=== PATIENT | female | born 1965 | race Caucasian/White ===

== ENCOUNTER → 2018-02-28 07:09 | Outpatient (CLI) | payer BC ==
[2014-05-13 17:30] VITALS: BMI 33.1
[~2018-02-28 07:09] MED LIST: BUTALB-APAP-CA1 EACH PO; CELEXA40 MG PO; HYDROCODONE-APA1 TAB PO; PRILOSEC20 MG PO
== END | disposition home or self-care (01) ==
LOC: D.MRI 07:09
DX: M54.2 Cervicalgia (principal)

== ENCOUNTER → 2018-10-24 13:13 | Outpatient (CLI) | payer BC | END | disposition home or self-care (01) | LOC: D.LABREF 13:13 | DX: R31.9 Hematuria, unspecified (principal) ==

== ENCOUNTER 2018-11-20 07:08 | Day surgery (SDC) | payer BC ==
[~2018-11-20] VITALS: Ht 152.4 cm; Wt 70.3 kg
[~2018-11-20 07:08] MED LIST changes: +BUPROPION HCL150 M1 PO
[2018-11-20 07:09] LABS: HEMATOCRIT 40.4 % (36.0-48.0); MCH 31.3 pg (26.0-34.0); MCHC 34.7 g/dL (31.0-37.0); MCV 90.4 fL (80.0-100.0); MEAN PLATELET VOLUME 9.1 fL (7.4-10.4); RBC 4.47 10x6/uL (4.00-5.40); RDW 13.3 % (11.5-14.5); WBC 4.1 10x3/uL (4.8-10.8)
[2018-11-20] MEDS ORDERED: WELLBUTRIN PO (08:22)
[2018-11-20 08:23] VITALS: BP 114/68; Ht 152.4 cm; Wt 70.3 kg
--- NOTE | 2018-11-20 10:49 | NUR ---
DC INSTRUCTIONS GIVEN TO PT/FAMILY. STATE UNDERSTANDING. DC'D IV CATH FULLY INTACT. PT VOIDED.
--- NOTE | 2018-11-20 10:59 | NUR ---
PT LEFT UNIT VIA WC AT 1058
--- NOTE | 2018-11-21 08:37 | OP ---
PATIENT NAME: YUKO SOLORZANO MEDICAL RECORD: [id number] :69 LOCATION:D.OPS ADMISSION DATE: SURGEON: RAMIN GALARZA MD DATE OF OPERATION: 11/20/2018 SURGEON: Ramin Galarza MD ANESTHESIA: TIVA by Russel Bautista CRNA PROCEDURES: Cystoscopy, bilateral retrograde pyelograms, hydrodistention and intravesical Rimso installation. DIAGNOSES: Microscopic hematuria, interstitial cystitis. FINDINGS: On cystoscopy, no bladder tumors, but diffusely inflamed bladder was noted. Single ureteral orifices are present bilaterally. 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 No filling defects are seen. BLOOD LOSS: None. CLINICAL HISTORY: This is a 53-year-old female, who was referred for microscopic hematuria. Urine cultures have shown no growth. She had a CT scan of the abdomen and pelvis, which showed "fullness" of the right ureter. No stones were seen. The kidneys were otherwise normal appearing. She has no significant voiding symptoms except for stress urinary incontinence, which was also present on physical examination. She also has some right lower quadrant abdominal pain, which radiates to the back. SHE IS ALLERGIC TO BACTRIM. She was given Ancef today oracle iam consultant to the OR. She comes today to have cystoscopy and bilateral retrograde pyelograms to define the ureteral anatomy. DESCRIPTION OF PROCEDURE: The patient was given IV sedation. She was placed in the lithotomy position and prepped and draped. A 21-Turkmen cystoscope with 30-degree lens was used for visualization. She had single ureteral orifices visible on each side. The bladder was extremely inflamed. I proceeded with hydrodistention. While we were performing the hydrodistention, I performed a right retrograde pyelogram. This shows that at the mid ureteral level, the ureter splits into two so there was a partial duplication. Following each of these ureteral units up to the upper and lower poles of the kidney, there were no apparent filling defects. The ureter that they had in common also showed no filling defects. A left retrograde pyelogram was then performed and this showed that the ureteral division occurs virtually at the entrance of the bladder. 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 Again, no filling defects or hydronephrosis were seen. The bladder was then emptied through the cystoscope sheath and the scope was removed. We instilled 50 mL of intravesical Rimso into the bladder through a red rubber catheter. The solution will be kept in the bladder for 15 minutes and then void it out. I will see her in followup in 2 weeks' time to review her symptoms at that time. She does want to have the stress urinary incontinence dealt with in the near future. TRANSINT:[id number] Voice Confirmation ID: [id number] DOCUMENT ID: [id number] OPERATIVE REPORT [id number] YUKO SOLORZANO, RAMIN Contreras MD at 0837 CC: [id number] DICTATION DATE: 11/20/18 1007 PSYCHOLOGICAL ASSISTANT: 11/20/18 1147 [facility] 11/20/18 [address] [place] [address]
== END 2018-11-20 10:58 | disposition home or self-care (01) ==
LOC: D.OPS 07:08 → D.PAN 12:15 → D.OPS 12:15
PROVIDERS: Anesthesiology; ATTEND Urology
DX: N30.11 Interstitial cystitis (chronic) with hematuria (principal); R31.29 Other microscopic hematuria; Z01.812 Encounter for preprocedural laboratory examination

== ENCOUNTER 2019-04-15 20:14 | Inpatient (IN) | payer BC ==
[~2019-04-15] VITALS: Ht 152.4 cm; Wt 66.7 kg
[~2019-04-15 20:14] MED LIST changes: +WELLBUTRIN PO
[2019-04-15] MEDS ORDERED: TYLENOL W/CODEI1 TAB PO (20:24)
[2019-04-15 20:58] LABS: BASOPHILS 0.1 % (0-2); EOSINOPHILS 0.7 % (0-7); HEMATOCRIT 44.7 % (36.0-48.0); HEMOGLOBIN 14.7 g/dL (12-16); IMMATURE GRANULOCYTES 0.3 % (0-5); LYMPHOCYTES 7.3 % (15-50); MCHC 32.9 g/dL (31.0-37.0); MCV 94.3 fL (80.0-100.0); MEAN PLATELET VOLUME 9.2 fL (7.4-10.4); MONOCYTES 4.2 % (2-11); NEUTROPHILS 87.4 % (40-80); PLATELET COUNT 117 10x3/uL (130-400); RBC 4.74 10x6/uL (4.00-5.40); RDW 13.9 % (11.5-14.5); WBC 9.1 10x3/uL (4.8-10.8)
[2019-04-15 21:08] LABS: HCG URINE NEGATIVE (NEGATIVE)
[2019-04-15 21:11] LABS: CALC OSMOLALITY 285 mosm/kg (275-300); CALCIUM 7.9 mg/dL (8.5-10.1); CARBON DIOXIDE 26.4 mmol/L (21.0-32.0); CHLORIDE - SERUM 106 mmol/L (98-107); CREATININE - SERUM 0.7 mg/dL (0.6-1.3); GLUCOSE 120 mg/dL (74-106); SODIUM 141 mmol/L (136-145); UREA NITROGEN 25 mg/dL (7-18); eGFR NON AFRICAN AMERICAN > 90 mL/min (90-120)
[2019-04-15 21:17] LABS: ALBUMIN 3.2 g/dL (3.4-5.0); ALKALINE PHOSPHATASE 73 U/L (46-116); ALT (SGPT) 45 U/L (10-68); AMYLASE - SERUM 216 U/L (25-115); BILIRUBIN - TOTAL 0.55 mg/dL (0.2-1.3); PROTEIN - SERUM 6.4 g/dL (6.4-8.2)
[2019-04-15 21:18] LABS: LIPASE 5089 U/L (73-393); TROPONIN-I < 0.017 ng/mL (0.000-0.060)
[2019-04-15 21:24] LABS: APPEARANCE CLEAR (CLEAR); BILIRUBIN NEGATIVE (NEGATIVE); COLOR YELLOW (YELLOW); GLUCOSE NEGATIVE (NEGATIVE); KETONE NEGATIVE (NEGATIVE); NITRITE NEGATIVE (NEGATIVE); PROTEIN NEGATIVE (NEGATIVE); SPECIFIC GRAVITY 1.015 (1.005-1.020); UROBILINOGEN NORMAL (NORMAL)
[2019-04-15 21:25] LABS: BACTERIA FEW /hpf (NEGATIVE); EPITHELIAL CELLS 0-5 /hpf (0-5); YEAST <1+ /hpf (NONE SEEN)
[2019-04-16 03:09] VITALS: BP 97/58; BMI 28.7
[2019-04-16 04:00] VITALS: BP 97/58
[2019-04-16 06:53] LABS: BASOPHILS 0.2 % (0-2); EOSINOPHILS 0.4 % (0-7); HEMATOCRIT 37.3 % (36.0-48.0); HEMOGLOBIN 12.2 g/dL (12-16); IMMATURE GRANULOCYTES 0.4 % (0-5); LYMPHOCYTES 12.4 % (15-50); MCH 30.7 pg (26.0-34.0); MCHC 32.7 g/dL (31.0-37.0); MCV 93.7 fL (80.0-100.0); MEAN PLATELET VOLUME 9.4 fL (7.4-10.4); MONOCYTES 4.9 % (2-11); NEUTROPHILS 81.7 % (40-80); RBC 3.98 10x6/uL (4.00-5.40); RDW 14.1 % (11.5-14.5)
[2019-04-16 07:10] LABS: ALBUMIN 2.4 g/dL (3.4-5.0); ALKALINE PHOSPHATASE 54 U/L (46-116); BILIRUBIN - TOTAL 0.41 mg/dL (0.2-1.3); CALCIUM 7.2 mg/dL (8.5-10.1); CARBON DIOXIDE 24.6 mmol/L (21.0-32.0); CHLORIDE - SERUM 109 mmol/L (98-107); CHOLESTEROL, TOTAL 153 mg/dL (0-200); CREATININE - SERUM 0.6 mg/dL (0.6-1.3); GLUCOSE 90 mg/dL (74-106); HDL CHOLESTEROL 76 mg/dL (32-96); LDL CHOLESTEROL 71 mg/dL (0-100); LDL-HDL RATIO 0.9 ratio (1.5-3.5); MAGNESIUM - SERUM 1.7 mg/dL (1.8-2.4); POTASSIUM - SERUM 3.7 mmol/L (3.5-5.1); SODIUM 140 mmol/L (136-145); TRIGLYCERIDE 34 mg/dL (30-200); eGFR NON AFRICAN AMERICAN > 90 mL/min (90-120)
[2019-04-16 07:11] LABS: ALT (SGPT) 30 U/L (10-68); CALC OSMOLALITY 280 mosm/kg (275-300); PROTEIN - SERUM 4.6 g/dL (6.4-8.2); UREA NITROGEN 17 mg/dL (7-18)
[2019-04-16 07:13] LABS: PLATELET COUNT 92 10x3/uL (130-400); WBC 5.1 10x3/uL (4.8-10.8)
[2019-04-16 07:54] VITALS: BP 93/50
--- NOTE | 2019-04-16 07:54 | NUR ---
PATIENT RECIEVED RESTING WITH NO NEEDS VOICED, DENIES PAIN OR NAUSEA, TOLERATING CL DIET. CL IN REACH
[2019-04-16 11:35] VITALS: BP 104/63
[2019-04-16 11:41] LABS: PLATELET ESTIMATE DECREASED
[2019-04-16 11:42] LABS: ROULEAUX 1+
[2019-04-16 12:45] VITALS: Ht 152.4 cm; Wt 66.7 kg
--- NOTE | 2019-04-16 16:51 | MORECARE ---
CASE MANAGEMENT DISCHARGE SUMMARY PATIENT: YUKO SOLORZANO UNIT: [id number] ADM DATE: 04/16/19 AGE: 53 : [birth year] SEX: F ROOM/BED: D.4245 AUTHOR: LUCY LLOYD PHYSICIAN: REFERRING PHYSICIAN: GERALD BUENO MD DATE OF SERVICE: 04/16/19 Discharge Plan Patient Name: YUKO SOLORZANO Facility[facility]:[place] : 1965 Planned Disposition: Home or Self Care Anticipated Discharge Date: Discharge Date: Expected LOS: Initial Reviewer: [email or web address] Initial Review Date: 04/16/2019 Generated: 04/16/19 5:51 pm Comments DCP- Discharge Planning Updated by [email or web address]: Nan Noguera on 04/16/19 3:[address] Patient Name: YUKO SOLORZANO Admission Status: ER Accout number: [id number] Admission Date: 04-16-2019 : 1965 Admission Diagnosis: Attending: GERALD BREWSTER Current LOS: 1 Anticipated DC Date: Planned Disposition: Home or Self Care Primary Insurance: [employer] [facility] Discharge Planning Comments: CM met with patient to complete initial dc planning assessment. CM educated patient on the CM role and verbal consent given by patient to complete assessment. Patient lives at home with her where she is independent with her care. At discharge patient plans to return home and feels this is a safe discharge. Her will be her corporate driver home when discharged. CM discussed availability of home health, rehab services, and medical equipment. Patient denied known discharge needs at this time. CM will continue to follow and will assist as needed with dc plans/needs. Skidder Runner: Nan Noguera DCPIA - Discharge Planning Initial Assessment Updated by [email or web address]: Nan Noguera on 04/16/19 4:48 pm * Is the patient Alert and Oriented? Yes * How many steps to enter\exit or inside your home? * PCP GNEEVIEVE * Pharmacy [facility] * Preadmission Environment Home with Family * ADLs Independent * Equipment None * List name and contact numbers for known caregivers / representatives who currently or will assist patient after discharge: LAURA () [phone] * Verbal permission to speak to the caregivers and representatives has been obtained from the patient. N/A * Community resources currently utilized None * Additional services required to return to the preadmission environment? No * Can the patient safely return to the preadmission environment? Yes * Has this patient been hospitalized within the prior 30 days at any hospital? No Patient Name: YUKO SOLORZANO Page [id number] at 1651 All edits/amendments must be made on the electronic document DICTATION DATE: 04/16/191650 PANTOGRAPH OPERATOR: LUCIO 04/16/191650 RPT#: [id number] DC DATE: STATUS: ADM IN [facility] [address] [place] [address] END OF REPORT
[2019-04-16 16:53] VITALS: BP 107/67
[2019-04-16 20:00] VITALS: BP 88/56
--- NOTE | 2019-04-16 20:00 | NUR ---
PT SITTING UP IN BED WITHOUT DISTRESS, AOX4. STATES PAIN 5/10 IN ABD. AT BEDSIDE. IV RIGHT AC INFUSING NS @ 100. CALLED [facility] AP[facility] ABOUT PAIN MEDS D/T PT STATING SHE DID NOT THINK SHE COULD WAIT UNTIL 0. NO NEW ORDERS. INFORMED PT AND , VERBALIZED UNDERSTANDING. CL IN REACH, WILL CTM
[2019-04-17] VITALS: BP 95/52
[2019-04-17 04:30] VITALS: BP 103/63
[2019-04-17 06:30] LABS: BASOPHILS 0.2 % (0-2); HEMATOCRIT 37.9 % (36.0-48.0); HEMOGLOBIN 12.2 g/dL (12-16); IMMATURE GRANULOCYTES 0.5 % (0-5); LYMPHOCYTES 37.6 % (15-50); MCH 30.7 pg (26.0-34.0); MCHC 32.2 g/dL (31.0-37.0); MCV 95.5 fL (80.0-100.0); MEAN PLATELET VOLUME 9.3 fL (7.4-10.4); NEUTROPHILS 52.7 % (40-80); PLATELET COUNT 91 10x3/uL (130-400); RBC 3.97 10x6/uL (4.00-5.40); RDW 14.4 % (11.5-14.5)
[2019-04-17 06:46] LABS: CALC OSMOLALITY 283 mosm/kg (275-300); CALCIUM 7.6 mg/dL (8.5-10.1); CARBON DIOXIDE 24.6 mmol/L (21.0-32.0); CHLORIDE - SERUM 113 mmol/L (98-107); CREATININE - SERUM 0.6 mg/dL (0.6-1.3); GLUCOSE 79 mg/dL (74-106); MAGNESIUM - SERUM 1.8 mg/dL (1.8-2.4); PHOSPHOROUS 2.6 mg/dL (2.5-4.9); POTASSIUM - SERUM 3.4 mmol/L (3.5-5.1); SODIUM 144 mmol/L (136-145); eGFR NON AFRICAN AMERICAN > 90 mL/min (90-120)
[2019-04-17 06:47] LABS: LIPASE 96 U/L (73-393); UREA NITROGEN 6 mg/dL (7-18)
--- NOTE | 2019-04-17 07:00 | NUR ---
BEDSIDE REPORT RECIEVED, ASSUMED CARE. PATIENT IN BED WITH IV INTACT. NO COMPLAINTS OR SIGNS OF DISTRESS. FAMILY AT BEDSIDE. CALL LIGHT WITHIN REACH.
[2019-04-17 09:00] VITALS: BP 103/62
[2019-04-17 11:47] VITALS: BP 116/70
[2019-04-17 16:19] VITALS: BP 114/64
--- NOTE | 2019-04-17 18:25 | NUR ---
PATIENT IN BED WITH IV INTACT. GETTING US OF ABDOMEN DONE. CALL LIGHT WITHIN REACH.
--- NOTE | 2019-04-17 19:55 | NUR ---
SITTING UP IN CHAIR AT BEDSIDE. ALERT AND ORIENTED X4. TALKATIVE AND JOKING WITH STAFF. RESP EVEN AND NONLABORED. DENIES PAIN. ABD SOFT, NONTENDER. REPORTS BM TODAY. SCDS NOT ON AT THIS TIME. AMBULATORY. SPOUSE AT BEDSIDE. NS @ 100 ML/HR INFUSING IN RT AC WITHOUT DIFF. CL IN REACH.
[2019-04-17 20:00] VITALS: BP 110/69
--- NOTE | 2019-04-17 20:30 | NUR ---
EATING SUPPER. GEOFF WELL. NO DISTRESS.
--- NOTE | 2019-04-17 22:30 | NUR ---
AMBULATING IN HALLWAY. NO DISTRESS. DENIES PAIN.
[2019-04-18] VITALS: BP 92/53
--- NOTE | 2019-04-18 02:00 | NUR ---
LYING ON RT SIDE IN BED. DENIES NEEDS. NO DISTRESS. SPOUSE AT BEDSIDE. CL IN REACH.
[2019-04-18 06:31] LABS: BASOPHILS 0.2 % (0-2); EOSINOPHILS 1.2 % (0-7); HEMATOCRIT 40.6 % (36.0-48.0); HEMOGLOBIN 13.4 g/dL (12-16); IMMATURE GRANULOCYTES 0.2 % (0-5); LYMPHOCYTES 43.8 % (15-50); MCH 31.2 pg (26.0-34.0); MCV 94.4 fL (80.0-100.0); MEAN PLATELET VOLUME 9.4 fL (7.4-10.4); MONOCYTES 7.8 % (2-11); NEUTROPHILS 46.8 % (40-80); RDW 14.3 % (11.5-14.5); WBC 4.1 10x3/uL (4.8-10.8)
[2019-04-18 06:39] LABS: PLATELET COUNT 110 10x3/uL (130-400)
[2019-04-18 06:44] LABS: CALC OSMOLALITY 281 mosm/kg (275-300); CALCIUM 8.5 mg/dL (8.5-10.1); CARBON DIOXIDE 27.8 mmol/L (21.0-32.0); CHLORIDE - SERUM 109 mmol/L (98-107); CREATININE - SERUM 0.7 mg/dL (0.6-1.3); GLUCOSE 88 mg/dL (74-106); MAGNESIUM - SERUM 2.1 mg/dL (1.8-2.4); PHOSPHOROUS 3.2 mg/dL (2.5-4.9); POTASSIUM - SERUM 3.9 mmol/L (3.5-5.1); SODIUM 143 mmol/L (136-145); UREA NITROGEN 7 mg/dL (7-18); eGFR NON AFRICAN AMERICAN > 90 mL/min (90-120)
--- NOTE | 2019-04-18 07:39 | NUR ---
ALERT AND ORIENTED. LUNGS CLEAR BILATERALLY. HEART SOUNDS S1 AND S2 HEARD IN ALL BARGER. BOWEL SOUNDS ACTIVE X 4. SKIN INTACT WITHOUT REDNESS. IV TO RIGHT AC PATENT WITHOUT REDNESS. DENIES PAIN. DENIES NEEDS. STATES SHOULD BE LEAVING TODAY. BED LOW. CALL CORDOVA AND PERSONAL ITEMS IN REACH. WILL CONTINUE TO MONITOR.
[2019-04-18 08:42] VITALS: BP 109/63
[2019-04-18] MEDS ORDERED: LEVOFLOXACIN500 MG PO (09:53)
[2019-04-18] MEDS ORDERED: FLAGYL500 MG PO (09:53)
--- NOTE | 2019-04-18 10:44 | MORECARE ---
CASE MANAGEMENT DISCHARGE SUMMARY PATIENT: YUKO SOLORZANO UNIT: [id number] ADM DATE: 04/16/19 AGE: 53 : 69 SEX: F ROOM/BED: D.6835 AUTHOR: LUCY LLOYD PHYSICIAN: REFERRING PHYSICIAN: GERALD BUENO MD DATE OF SERVICE: 04/18/19 Discharge Plan Patient Name: YUKO SOLORZANO Facility: [facility]:[place] : 1965 Planned Disposition: Home or Self Care Anticipated Discharge Date: Discharge Date: Expected LOS: Initial Reviewer: [email or web address] Initial Review Date: 04/16/2019 Generated: 04/18/19 11:44 am Comments DCP- Discharge Planning Updated by [email or web address]: Nan Noguera on 04/18/19 9:[address] Patient Name: YUKO SOLORZANO Encounter No: [id number] : 1965 Primary Insurance: [employer] [facility] [place] [facility] Anticipated DC Date: Planned Disposition: Home or Self Care External Planned Provider: : DCP follow-up note: Patient and family in agreement with discharge plan. No changes to plan. Case management will follow and assist as needed. Nan Noguera DCP- Discharge Planning Updated by [email or web address]: Nan Noguera on 04/16/19 3:[address] Patient Name: YUKO SOLORZANO Admission Status: ER Accout number: [id number] Admission Date: 04-16-2019 : 1965 Admission Diagnosis: Attending: GERALD BREWSTER Current LOS: 1 Anticipated DC Date: Planned Disposition: Home or Self Care Primary Insurance: [employer] [facility] [place] [facility] Discharge Planning Comments: CM met with patient to complete initial dc planning assessment. CM educated patient on the CM role and verbal consent given by patient to complete assessment. Patient lives at home with her where she is independent with her care. At discharge patient plans to return home and feels this is a safe discharge. Her will be her driver helper home when discharged. CM discussed availability of home health, rehab services, and medical equipment. Patient denied known discharge needs at this time. CM will continue to follow and will assist as needed with dc plans/needs. Coal Bagger: Nan Noguera DCPIA - Discharge Planning Initial Assessment Updated by [email or web address]: Nan Noguera on 04/16/19 4:48 pm * Is the patient Alert and Oriented? Yes * How many steps to enter\exit or inside your home? * PCP GENEVIEVE * Pharmacy [facility] * Preadmission Environment Home with Family * ADLs Independent * Equipment None * List name and contact numbers for known caregivers / representatives who currently or will assist patient after discharge: LAURA () [phone] * Verbal permission to speak to the caregivers and representatives has been obtained from the patient. N/A * Community resources currently utilized None * Additional services required to return to the preadmission environment? No * Can the patient safely return to the preadmission environment? Yes * Has this patient been hospitalized within the prior 30 days at any hospital? No Last DP export: 04/16/19 3:52 Patient Name: YUKO SOLORZANO Page [phone] at 1044 All edits/amendments must be made on the electronic document DICTATION DATE: 04/18/19 1044 LOCAL OWNER OPERATOR TRUCK DRIVER: LUCIO 04/18/19 1044 RPT#: [id number] DC DATE: STATUS: ADM IN [facility] [address] [place] [address] END OF REPORT
--- NOTE | 2019-04-18 11:09 | NUR ---
DISCHARGE EDUCATION PROVIDED BOTH WRITTEN AND VERBAL. VERBALIZED UNDERSTANDING. DENIES FURTHER QUESTIONS. IV REMOVED FROM RIGHT AC WITH TIP INTACT. DENIES FURTHER NEEDS. PATIENT DISCHARGED HOME WITH ALL BELONGINGS.
--- NOTE | 2019-04-19 15:56 | MORECARE ---
CASE MANAGEMENT DISCHARGE SUMMARY PATIENT: YUKO SOLORZANO UNIT: [id number] ADM DATE: 04/16/19 AGE: 53 : 69 SEX: F ROOM/BED: D.8465 AUTHOR: LUCY LLOYD PHYSICIAN: REFERRING PHYSICIAN: GERALD BUENO MD DATE OF SERVICE: 04/19/19 Discharge Plan Patient Name: YUKO SOLORZANO Facility: [facility]:[place] : 1965 Planned Disposition: Home or Self Care Anticipated Discharge Date: Discharge Date: 04/18/2019 Expected LOS: Initial Reviewer: [email or web address] Initial Review Date: 04/16/2019 Generated: 04/19/19 4:56 pm Comments DCP- Discharge Planning Updated by [email or web address]: Nan Noguera on 04/18/19 9:[address] Patient Name: YUKO SOLORZANO Encounter No: [id number] : 1965 Primary Insurance: [employer] [facility] [place] Anticipated DC Date: Planned Disposition: Home or Self Care External Planned Provider: : DCP follow-up note: Patient and family in agreement with discharge plan. No changes to plan. Case management will follow and assist as needed. Nan Noguera DCP- Discharge Planning Updated by [id number]: Nan Noguera on 04/16/19 3:[address] Patient Name: YUKO SOLORZANO Admission Status: ER Accout number: [id number] Admission Date: 04-16-2019 : 1965 Admission Diagnosis: Attending: GERALD BREWSTER Current LOS: 1 Anticipated DC Date: Planned Disposition: Home or Self Care Primary Insurance: XO1 [facility] Discharge Planning Comments: CM met with patient to complete initial dc planning assessment. CM educated patient on the CM role and verbal consent given by patient to complete assessment. Patient lives at home with her where she is independent with her care. At discharge patient plans to return home and feels this is a safe discharge. Her will be her shuttle truck driver home when discharged. CM discussed availability of home health, rehab services, and medical equipment. Patient denied known discharge needs at this time. CM will continue to follow and will assist as needed with dc plans/needs. Resident Care Spec: Nan Noguera DCPIA - Discharge Planning Initial Assessment Updated by [email or web address]: Nan Noguera on 04/16/19 4:48 pm * Is the patient Alert and Oriented? Yes * How many steps to enter\exit or inside your home? * PCP GENEVIEVE * Pharmacy [facility] * Preadmission Environment Home with Family * ADLs Independent * Equipment None * List name and contact numbers for known caregivers / representatives who currently or will assist patient after discharge: LAURA () [phone] * Verbal permission to speak to the caregivers and representatives has been obtained from the patient. N/A * Community resources currently utilized None * Additional services required to return to the preadmission environment? No * Can the patient safely return to the preadmission environment? Yes * Has this patient been hospitalized within the prior 30 days at any hospital? No Last DP export: 04/18/19 9:44 Patient Name: YUKO SOLORZANO Page [id number] at 1556 All edits/amendments must be made on the electronic document DICTATION DATE: 04/19/19 1556 MAIL HANDLER: LUCIO 04/19/19 155 RPT#: [id number] DC DATE:04/18/19 STATUS: DIS IN [facility] [address] [place] [address] END OF REPORT
== END 2019-04-18 11:14 | disposition home or self-care (01) | DRG 439 ==
LOC: D.ER 20:14 → D.MS 23:26 → OBSVTIME 23:26 → D.MS 23:26
PROVIDERS: Family Medicine; ADMIT Family Medicine Adult Medicine; ATTEND Family Medicine Adult Medicine
DX: K85.90 Acute pancreatitis without necrosis or infection, unspecified (principal); N39.0 Urinary tract infection, site not specified; E83.42 Hypomagnesemia; F41.8 Other specified anxiety disorders; D18.09 Hemangioma of other sites

== ENCOUNTER → 2019-06-17 09:10 | Outpatient (CLI) | payer BC ==
[2019-04-16 12:45] VITALS: BMI 28.7
[~2019-06-17 09:10] MED LIST changes: +FLAGYL500 MG PO; +LEVOFLOXACIN500 MG PO; +TYLENOL W/CODEI1 TAB PO
== END | disposition home or self-care (01) ==
LOC: D.NM 09:10
PROVIDERS: ATTEND Family Medicine
DX: R10.11 Right upper quadrant pain (principal)